=== PATIENT | female | born 1940 | race Caucasian/White ===

== ENCOUNTER → 2020-11-10 | Outpatient (CLI) | payer MEDICARE, OTHER ==
[~2020-11-10] MED LIST: ASCO500; ATOR20 PO; Acetaminophen325 M1; Bumetanide2 MG PO; COQ1050 MG PO; LOSA25 PO; METO25ER PO; MULVITA PO; POTA10T PO; VITAMIN D310 MC5; WARF5 PO; ZOLP5 PO
== END | disposition home or self-care (01) ==
LOC: LAB SHORT 12:56 → PLD 12:56
DX: D04.4 Carcinoma in situ of skin of scalp and neck (principal)
CPT/HCPCS: 88305

== ENCOUNTER 2021-04-20 17:43 | Emergency (ER) | payer MEDICARE, OTHER ==
[~2021-04-20] VITALS: Ht 154.9 cm; Wt 59.0 kg
[2021-04-20 18:37] LABS: BASOPHILS ABSOLUTE AUTO 0.02 K/mm3 (0.00-0.23); BASOPHILS PERCENT AUTO 0 % (0-2); EOSINOPHILS PERCENT AUTO 2 % (0-6); Hematocrit 37.8 % (33.0-51.0); Hemoglobin 11.9 g/dL (11.5-16.0); IMMATURE GRAN ABSOLUTE AUTO 0.02 K/mm3 (0.00-0.10); IMMATURE GRAN PERCENT AUTO 0 % (0-1); LYMPHOCYTES ABSOLUTE AUTO 0.64 K/mm3 (0.84-5.20); LYMPHOCYTES PERCENT AUTO 12 % (21-46); MONOCYTES ABSOLUTE AUTO 0.53 K/mm3 (0.16-1.47); MONOCYTES PERCENT AUTO 10 % (4-13); Mean Corpuscular HGB 31.2 pg (26.0-34.0); Mean Corpuscular HGB Conc 31.5 g/dL (31.5-36.5); Mean Corpuscular Volume 99 fL (80-100); Mean Platelet Volume 10.4 fL (9.1-12.4); NEUTROPHILS ABSOLUTE AUTO 3.96 K/mm3 (1.96-9.15); NEUTROPHILS PERCENT AUTO 75 % (41-73); Platelet Count 188 K/mm3 (150-400); RDW Coefficient Variation 16.1 % (11.7-14.2); RDW Standard Deviation 58.5 fL (35.1-46.3); Red Blood Cell Count 3.81 M/mm3 (3.80-5.20); White Blood Cell Count 5.27 K/mm3 (4.00-11.30)
[2021-04-20 19:00] LABS: Albumin, Blood 3.6 g/dL (3.4-5.0); Albumin/Globulin Ratio 0.8 (0.8-1.8); Bilirubin, Total 1.2 mg/dL (0.1-1.0); Bun/Creatinine Ratio 18.4 (12.0-20.0); Calcium, Blood 9.8 mg/dL (8.5-10.1); Creatinine, Blood 1.14 mg/dL (0.40-1.00); Globulin, Blood 4.4 g/dL (2.2-4.0); Potassium, Blood 4.1 mmol/L (3.5-5.5); Troponin I 0.038 ng/mL (0.000-0.040)
[2021-04-20] MEDS ORDERED: POTA10T PO (19:51)
[2021-04-20] MEDS ORDERED: ATOR20 PO (19:51)
[2021-04-20] MEDS ORDERED: WARF5 PO (19:52)
[2021-04-20] MEDS ORDERED: Bumetanide2 MG PO (19:53)
[2021-04-20] MEDS ORDERED: METO25ER PO (19:53)
[2021-04-20] MEDS ORDERED: LOSA25 PO (19:55)
[2021-04-20] MEDS ORDERED: ZOLP5 PO (19:55)
[2021-04-20] MEDS ORDERED: COQ1050 MG PO (19:56)
[2021-04-20] MEDS ORDERED: ASCO500 (19:56)
[2021-04-20] MEDS ORDERED: MULVITA PO (19:56)
[2021-04-20] MEDS ORDERED: Acetaminophen325 M1 (19:56)
[2021-04-20] MEDS ORDERED: VITAMIN D310 MC5 (19:57)
== END 2021-04-20 23:23 | disposition home or self-care (01) ==
LOC: ER 17:43
PROVIDERS: Physician Assistant
DX: I50.9 Heart failure, unspecified (principal); I48.91 Unspecified atrial fibrillation; Z88.8 Allergy status to other drugs, medicaments and biological substances; Z79.01 Long term (current) use of anticoagulants; Z79.899 Other long term (current) drug therapy; Z87.891 Personal history of nicotine dependence
CPT/HCPCS: 36415; 71046; 80053; 83880; 84484; 85025; 93005; 93010; 96374; 96376; 99285-25

== ENCOUNTER 2021-06-23 05:22 | Emergency (ER) | payer MEDICARE, OTHER ==
[~2021-06-23] VITALS: Ht 157.5 cm; Wt 58.5 kg
[2021-06-23] MEDS ORDERED: POTA10T PO (05:38)
[2021-06-23] MEDS ORDERED: ATOR10 PO (05:39)
[2021-06-23] MEDS ORDERED: LOSA25 PO (05:39)
[2021-06-23] MEDS ORDERED: WARF2.5 (05:39)
[2021-06-23] MEDS ORDERED: METO25ER PO (05:39)
[2021-06-23] MEDS ORDERED: ZOLP5 PO (05:40)
[2021-06-23] MEDS ORDERED: BUME2 PO (05:42)
[2021-06-23 06:13] LABS: BASOPHILS ABSOLUTE AUTO 0.02 K/mm3 (0.00-0.23); BASOPHILS PERCENT AUTO 1 % (0-2); EOSINOPHILS PERCENT AUTO 3 % (0-6); Hemoglobin 11.2 g/dL (11.5-16.0); IMMATURE GRAN ABSOLUTE AUTO 0.01 K/mm3 (0.00-0.10); IMMATURE GRAN PERCENT AUTO 0 % (0-1); LYMPHOCYTES ABSOLUTE AUTO 0.69 K/mm3 (0.84-5.20); LYMPHOCYTES PERCENT AUTO 19 % (21-46); MONOCYTES ABSOLUTE AUTO 0.44 K/mm3 (0.16-1.47); MONOCYTES PERCENT AUTO 12 % (4-13); Mean Corpuscular HGB 30.9 pg (26.0-34.0); Mean Corpuscular HGB Conc 31.1 g/dL (31.5-36.5); Mean Corpuscular Volume 99 fL (80-100); Mean Platelet Volume 10.3 fL (9.1-12.4); NEUTROPHILS ABSOLUTE AUTO 2.41 K/mm3 (1.96-9.15); NEUTROPHILS PERCENT AUTO 66 % (41-73); Platelet Count 143 K/mm3 (150-400); RDW Coefficient Variation 17.2 % (11.7-14.2); RDW Standard Deviation 63.7 fL (35.1-46.3); Red Blood Cell Count 3.62 M/mm3 (3.80-5.20); White Blood Cell Count 3.67 K/mm3 (4.00-11.30)
[2021-06-23 06:32] LABS: Albumin, Blood 3.3 g/dL (3.4-5.0); Albumin/Globulin Ratio 0.8 (0.8-1.8); Bilirubin, Total 1.1 mg/dL (0.1-1.0); Bun/Creatinine Ratio 17.5 (12.0-20.0); Calcium, Blood 9.3 mg/dL (8.5-10.1); Creatinine, Blood 1.26 mg/dL (0.40-1.00); Globulin, Blood 4.1 g/dL (2.2-4.0); Total Protein, Blood 7.4 g/dL (6.4-8.2); Troponin I 0.029 ng/mL (0.000-0.040)
[2021-06-23 07:00] LABS: International Normalized Ratio 2.39; Prothrombin Time Results 24.6 Sec (9.7-11.5)
== END 2021-06-23 11:31 | disposition home or self-care (01) ==
LOC: ER 05:22
PROVIDERS: Emergency Medicine
DX: I50.9 Heart failure, unspecified (principal); I48.91 Unspecified atrial fibrillation; Z88.8 Allergy status to other drugs, medicaments and biological substances; Z79.899 Other long term (current) drug therapy; Z79.01 Long term (current) use of anticoagulants; Z98.890 Other specified postprocedural states
CPT/HCPCS: 71045; 80053; 83880; 84484; 85025; 85610; 93005; 93010; 96374; 99285-25; J1940

== ENCOUNTER 2021-12-01 08:10 | Emergency (ER) | payer MEDICARE, OTHER ==
[~2021-12-01] VITALS: Ht 157.5 cm; Wt 59.0 kg
[~2021-12-01 08:10] MED LIST changes: +ATOR10 PO; +BUME2 PO; +WARF2.5
[2021-12-01] MEDS ORDERED: POTA10T (08:29)
[2021-12-01 09:29] LABS: BASOPHILS ABSOLUTE AUTO 0.02 K/mm3 (0.00-0.23); BASOPHILS PERCENT AUTO 1 % (0-2); EOSINOPHILS ABSOLUTE AUTO 0.07 K/mm3 (0.00-0.68); EOSINOPHILS PERCENT AUTO 2 % (0-6); Hematocrit 34.2 % (33.0-51.0); Hemoglobin 10.5 g/dL (11.5-16.0); IMMATURE GRAN ABSOLUTE AUTO 0.01 K/mm3 (0.00-0.10); IMMATURE GRAN PERCENT AUTO 0 % (0-1); LYMPHOCYTES ABSOLUTE AUTO 0.49 K/mm3 (0.84-5.20); LYMPHOCYTES PERCENT AUTO 11 % (21-46); MONOCYTES ABSOLUTE AUTO 0.46 K/mm3 (0.16-1.47); MONOCYTES PERCENT AUTO 11 % (4-13); Mean Corpuscular HGB 31.7 pg (26.0-34.0); Mean Corpuscular HGB Conc 30.7 g/dL (31.5-36.5); Mean Corpuscular Volume 103 fL (80-100); Mean Platelet Volume 10.6 fL (9.1-12.4); NEUTROPHILS ABSOLUTE AUTO 3.33 K/mm3 (1.96-9.15); NEUTROPHILS PERCENT AUTO 76 % (41-73); Platelet Count 156 K/mm3 (150-400); RDW Coefficient Variation 16.2 % (11.7-14.2); RDW Standard Deviation 62.4 fL (35.1-46.3); Red Blood Cell Count 3.31 M/mm3 (3.80-5.20); White Blood Cell Count 4.38 K/mm3 (4.00-11.30)
[2021-12-01 09:52] LABS: Albumin, Blood 3.4 g/dL (3.4-5.0); Albumin/Globulin Ratio 0.8 (0.8-1.8); Bilirubin, Direct 0.8 mg/dL (0.0-0.3); Bilirubin, Indirect 0.5 mg/dL (0.1-0.7); Bilirubin, Total 1.3 mg/dL (0.1-1.0); Bun/Creatinine Ratio 28.5 (12.0-20.0); Calcium, Blood 10.1 mg/dL (8.5-10.1); Creatinine, Blood 1.37 mg/dL (0.40-1.00); Globulin, Blood 4.5 g/dL (2.2-4.0); Potassium, Blood 3.9 mmol/L (3.5-5.5); Total Protein, Blood 7.9 g/dL (6.4-8.2)
[2021-12-01 10:44] LABS: Influenza A, PCR NEGATIVE (NEGATIVE); Influenza B, PCR NEGATIVE (NEGATIVE); Resp Syncytial Virus, PCR NEGATIVE (NEGATIVE); SARS-Cov-2 (COVID-19) PCR, MMC NEGATIVE (NEGATIVE)
[2021-12-01] MEDS ORDERED: Bumetanide2 MG PO (14:35)
== END 2021-12-01 15:45 | disposition home or self-care (01) ==
LOC: ER 08:10
PROVIDERS: Student in an Organized Health Care Education/Training Program
DX: J96.11 Chronic respiratory failure with hypoxia (principal); I50.9 Heart failure, unspecified; I48.91 Unspecified atrial fibrillation; N18.9 Chronic kidney disease, unspecified; Z20.822 Contact with and (suspected) exposure to COVID-19; Z88.8 Allergy status to other drugs, medicaments and biological substances; Z79.01 Long term (current) use of anticoagulants; Z79.899 Other long term (current) drug therapy
CPT/HCPCS: 0241U; 71045; 80048; 80076; 83735; 83880; 84484; 85025; 93005; 93010

== ENCOUNTER 2022-04-10 14:09 | Inpatient (IN) | payer MEDICARE, OTHER ==
[~2022-04-10] VITALS: Ht 154.9 cm; Wt 141.4 kg
[~2022-04-10 14:09] MED LIST changes: +POTA10T
[2022-04-10 14:33] LABS: BASOPHILS ABSOLUTE AUTO 0.02 K/mm3 (0.00-0.23); BASOPHILS PERCENT AUTO 0 % (0-2); EOSINOPHILS ABSOLUTE AUTO 0.08 K/mm3 (0.00-0.68); EOSINOPHILS PERCENT AUTO 1 % (0-6); Hematocrit 34.8 % (33.0-51.0); Hemoglobin 10.5 g/dL (11.5-16.0); IMMATURE GRAN ABSOLUTE AUTO 0.02 K/mm3 (0.00-0.10); IMMATURE GRAN PERCENT AUTO 0 % (0-1); LYMPHOCYTES ABSOLUTE AUTO 0.38 K/mm3 (0.84-5.20); LYMPHOCYTES PERCENT AUTO 6 % (21-46); MONOCYTES ABSOLUTE AUTO 0.66 K/mm3 (0.16-1.47); MONOCYTES PERCENT AUTO 11 % (4-13); Mean Corpuscular HGB 30.9 pg (26.0-34.0); Mean Corpuscular HGB Conc 30.2 g/dL (31.5-36.5); Mean Corpuscular Volume 102 fL (80-100); Mean Platelet Volume 10.4 fL (9.1-12.4); NEUTROPHILS ABSOLUTE AUTO 4.87 K/mm3 (1.96-9.15); NEUTROPHILS PERCENT AUTO 81 % (41-73); Platelet Count 252 K/mm3 (150-400); RDW Coefficient Variation 15.9 % (11.7-14.2); RDW Standard Deviation 60.7 fL (35.1-46.3); White Blood Cell Count 6.03 K/mm3 (4.00-11.30)
[2022-04-10 14:51] LABS: Albumin/Globulin Ratio 0.7 (0.8-1.8); Bilirubin, Total 1.9 mg/dL (0.1-1.0); Bun/Creatinine Ratio 40.5 (12.0-20.0); Calcium, Blood 9.7 mg/dL (8.5-10.1); Creatinine, Blood 2.15 mg/dL (0.40-1.00); Globulin, Blood 4.6 g/dL (2.2-4.0); Total Protein, Blood 7.6 g/dL (6.4-8.2)
[2022-04-10 15:30] LABS: Source, Urine Straight Cath
[2022-04-10 15:40] LABS: Appearance, Urine Clear (Clear); Bilirubin, Urine Neg (Neg); Blood, Urine Neg (Neg); Color, Urine Yellow (P-Yellow); Glucose Qualitative, Urine Neg (Neg); Ketones, Urine Neg (Neg); Leukocyte Esterase, Urine Neg (Neg); Nitrite, Urine Neg (Neg); Protein, Urine Neg (Neg); Specific Gravity, Urine 1.015 (1.003-1.022); Urobilinogen, Urine NORM (Normal)
[2022-04-10 20:24] LABS: Prothrombin Time Results 75.7 Sec (9.7-11.5)
[2022-04-10 20:26] LABS: International Normalized Ratio 8.28
--- NOTE | 2022-04-10 22:18 | NUR ---
PATIENT IS A NEW ADMIT FROM THE ED. ONE ASSIST TRANSFER FROM [facility] TO BED. ON 6L O2 NC AND SOB W/EXERTION. AXOX 3 WITH LOW VOICE, MUMBLES AT TIMES. DENIES CHEST PAIN AND N/V. IV BUMEX GIVEN IN ED. FOOD PROVIDED PER DIET ON ADMIT. PATIENT ORIENTED TO ROOM AND CALL LIGHT SYSTEM. REPORTS WANTS TO SLEEP AFTER ASSESSMENT. TELEMETRY PLACED AND TECH REPORTS PACED @ 60. CALL LIGHT IN REACH AND BED ALARM ACTIVATED.
--- NOTE | 2022-04-10 23:23 | NUR ---
PATIENT OOB W/O USING CALL LIGHT. ON BED ALARM. UP TO BSC WITH ONE ASSIST. PULLED TELEMETRY LEADS OFF. REDIRECTED BACK INTO BED AND LEADS REPLACED. CALL LIGHT IN REACH AND ALARM ACTIVATED.
[2022-04-11 01:19] LABS: Prothrombin Time Results 75.9 Sec (9.7-11.5)
[2022-04-11 01:21] LABS: International Normalized Ratio 8.3
[2022-04-11 01:21] LABS: Bun/Creatinine Ratio 41.1 (12.0-20.0); Calcium, Blood 9.3 mg/dL (8.5-10.1); Creatinine, Blood 2.19 mg/dL (0.40-1.00)
--- NOTE | 2022-04-11 02:40 | NUR ---
cH K+ 6.O AND cH INR 8.3, HOSPITALIST DR SLOAN ORDERED: INSULIN REGULAR 5 UNITS CALCIUM GLUCONATE IVPB DEXTROSE 5% 500 mL BAG. NO D50 AMPS AT THIS TIME
--- NOTE | 2022-04-11 04:47 | NUR ---
SHIFT SUMMARY PATIENT HAD cH: K+ 6.[address] SLOAN ORDERED IVPB CALICUM GLUCONATE, IV INSULIN REGULAR 5 UNITS AND DEXTROSE 5% 500 mL X ONE. LAB REDRAW IN MORNING. K+ WAS PREVIOUS 5.6 AND 6.0 ON ADMIT. cH INR 8.30. AXOX 3 AND ONE ASSIST TO BSC. ON 6L O2 NC BASELINE. VSS/AFEBRILE. TELEMETRY PACED 60'S. DENIES PAIN AND N/V. SOB WITH EXERTION. OOB X ONE WITH CONFUSION PULLING OFF TELEMETRY LEADS. REORIENTED BACK INTO BED. NO OTHER OOB EVENTS. CALL LIGHT IN REACH. BED IN LOWEST POSITION AND ALARM ACTIVATED. WILL CONTINUE TO MONITOR UNTIL DAY SHIFT NURSE ASSUMES CARE.
[2022-04-11 06:07] LABS: Albumin, Blood 2.8 g/dL (3.4-5.0); Albumin/Globulin Ratio 0.6 (0.8-1.8); Bilirubin, Total 1.8 mg/dL (0.1-1.0); Bun/Creatinine Ratio 43.7 (12.0-20.0); Calcium, Blood 9.8 mg/dL (8.5-10.1); Creatinine, Blood 2.06 mg/dL (0.40-1.00); Globulin, Blood 4.5 g/dL (2.2-4.0); Potassium, Blood 5.2 mmol/L (3.5-5.5); Total Protein, Blood 7.3 g/dL (6.4-8.2)
[2022-04-11 12:31] LABS: Hematocrit 34.7 % (33.0-51.0); Hemoglobin 10.3 g/dL (11.5-16.0)
[2022-04-11 13:26] LABS: Prothrombin Time Results 70.8 Sec (9.7-11.5)
[2022-04-11 13:28] LABS: International Normalized Ratio 7.71
--- NOTE | 2022-04-11 14:15 | NUR ---
SHIFT SUMMARY PT RESTING QUIETLY AWAKE AT START OF SHIFT. ADMITTED FOR MIRYAM, IN CONTACT ISO FOR R/O C-DIFF. MULTIPLE LIQUID BM'S TODAY, BUT ALWAYS CONTAMINATED. WEAK AND UNSTEADY, BUT ABLE TO GET UP TO CHAIR FOR MEALS AND BSC NEEDED. NO C/O PAIN. ON 4L O2 VIA N/C WITH BIOX AT 100%. WILL TITRATE DOWN ABLE. INR RECHK'D; NEW ORDERS PLACED AND GIVEN, SEE CHART. RESTING QUIETLY AT THIS TIME. DENIES FURTHER NEEDS. CALL LT IN REACH.
[2022-04-12 05:47] LABS: BASOPHILS ABSOLUTE AUTO 0.01 K/mm3 (0.00-0.23); BASOPHILS PERCENT AUTO 0 % (0-2); EOSINOPHILS ABSOLUTE AUTO 0.03 K/mm3 (0.00-0.68); EOSINOPHILS PERCENT AUTO 1 % (0-6); Hematocrit 32.5 % (33.0-51.0); Hemoglobin 9.8 g/dL (11.5-16.0); IMMATURE GRAN ABSOLUTE AUTO 0.02 K/mm3 (0.00-0.10); IMMATURE GRAN PERCENT AUTO 0 % (0-1); LYMPHOCYTES ABSOLUTE AUTO 0.36 K/mm3 (0.84-5.20); LYMPHOCYTES PERCENT AUTO 6 % (21-46); MONOCYTES PERCENT AUTO 12 % (4-13); Mean Corpuscular HGB 30.9 pg (26.0-34.0); Mean Corpuscular HGB Conc 30.2 g/dL (31.5-36.5); Mean Corpuscular Volume 103 fL (80-100); Mean Platelet Volume 10.6 fL (9.1-12.4); NEUTROPHILS PERCENT AUTO 81 % (41-73); Platelet Count 237 K/mm3 (150-400); RDW Coefficient Variation 15.9 % (11.7-14.2); Red Blood Cell Count 3.17 M/mm3 (3.80-5.20); White Blood Cell Count 5.82 K/mm3 (4.00-11.30)
[2022-04-12 06:08] LABS: Albumin, Blood 2.6 g/dL (3.4-5.0); Albumin/Globulin Ratio 0.6 (0.8-1.8); Bilirubin, Total 1.9 mg/dL (0.1-1.0); Bun/Creatinine Ratio 48.8 (12.0-20.0); Calcium, Blood 9.6 mg/dL (8.5-10.1); Creatinine, Blood 1.68 mg/dL (0.40-1.00); Globulin, Blood 4.2 g/dL (2.2-4.0); Potassium, Blood 5.1 mmol/L (3.5-5.5); Total Protein, Blood 6.8 g/dL (6.4-8.2)
[2022-04-12 06:16] LABS: International Normalized Ratio 2.35; Prothrombin Time Results 23.3 Sec (9.7-11.5)
--- NOTE | 2022-04-12 06:30 | NUR ---
SHIFT SUMMARY: NO SIGNIFICANT EVENTS ON NOC. REMAINS ON 1L O2 SAT > 94%. STOOL IS SOFT BUT FORMED. UNABLE TO SEND UA OR JULIA SAMPLE DUE TO PATIENT MIXING UA/STOOL WITH EACH OCCURANCE. TELE =PACED, MURMUR HEARD. BLE AND LUE EDEMA. PATIENT COMPLIANT WITH MEDICATIONS/PLAN OF CARE.
[2022-04-12 13:20] LABS: Bun/Creatinine Ratio 52.9 (12.0-20.0); Calcium, Blood 9.9 mg/dL (8.5-10.1); Creatinine, Blood 1.55 mg/dL (0.40-1.00); Potassium, Blood 5.1 mmol/L (3.5-5.5)
--- NOTE | 2022-04-12 16:32 | NUR ---
SHIFT SUMMARY PT AxOx4. PLEASANT AND COOPERATIVE WITH CARE. OCCASIONAL FORGETFULNESS. PT REPORTS FEELING GENERALLY UNWELL THIS SHIFT. PT IS SLEEPING A LOT T/O THE DAY. PT REPORTED HAVING AN UPSET STOMACH AFTER MORNING MEDS. PT STARTED ON IV FLUIDS. PT REPORTS LOW APPETITE, BUT GOOD FLUID INTAKE. SIGNIFICANT SWELLING IN LUE NOTED. PT STATES THE SWELLING IS "NORMAL FOR HER" POST L MASTECTOMY IN 2012. PT BREATHING WITHOUT DIFFICULTY ON 2L OF 02 AT THIS TIME. PER SUPERVISOR LITHARGE, TELE PACED AT 62. UNABLE TO COLLECT UA D/T CONTAMINATION. CONTACT PRECAUTIONS DC'D PER DR MUNROE PT'S STOOLS ARE NOW FORMED. PT CURRENTLY RESTING IN BED WITH CALL LIGHT IN REACH. VITALS REVIEWED. DENIES ANY NEEDS AT THIS TIME.
--- NOTE | 2022-04-13 05:23 | NUR ---
SHIFT SUMMARY: NO SIGNIFICANT EVENTS ON NOC. PATIENT SLEPT WELL THROUGH THE NIGHT. REAMINS ON 2.5L, CONTINOUS BIOX SHOWS SAT > 96%.
[2022-04-13 05:42] LABS: International Normalized Ratio 1.6; Prothrombin Time Results 16.3 Sec (9.7-11.5)
[2022-04-13 06:12] LABS: Bun/Creatinine Ratio 56.7 (12.0-20.0); Calcium, Blood 9.9 mg/dL (8.5-10.1); Creatinine, Blood 1.27 mg/dL (0.40-1.00); Potassium, Blood 4.8 mmol/L (3.5-5.5)
[2022-04-13 07:06] LABS: Hematocrit 32.4 % (33.0-51.0); Hemoglobin 9.8 g/dL (11.5-16.0)
--- NOTE | 2022-04-13 18:40 | NUR ---
SUMM- PT A/O X4, AMBULATES SBA GOOD STRENGTH, STEADY ON FEET. O2 @ 3L 94-96%, LUNGS DIM LOWER HALF. HEART WITH LOUD MURMUR. TELE PACED 60'S. LE EDEMA +2, LUE +3, STATES L MASECTOMY. DENIES DIZZINESS TODAY. TOLERATING FOOD AND FLUIDS. ORDER FOR LR @60 INFUSING X500ML. PLAN LIKELY DC TOMORROW BACK TO [facility]. WILL REPORT TO SUDHEER RN
[2022-04-14 04:42] LABS: Hematocrit 36.9 % (33.0-51.0); Hemoglobin 11.2 g/dL (11.5-16.0)
[2022-04-14 04:58] LABS: International Normalized Ratio 1.84; Prothrombin Time Results 18.6 Sec (9.7-11.5)
[2022-04-14 05:02] LABS: Bun/Creatinine Ratio 50.7 (12.0-20.0); Calcium, Blood 9.9 mg/dL (8.5-10.1); Creatinine, Blood 1.42 mg/dL (0.40-1.00); Potassium, Blood 5.4 mmol/L (3.5-5.5)
--- NOTE | 2022-04-14 05:31 | NUR ---
SHIFT SUMMARY: PATIENT APPEARS TO BE FULID OVERLOADED, WORK OF BREATHING INCREASED TACHYPNEA, 26, PURSED LIP BREATHING, AUDIABLE CRACKELS AND EXPRITORY WHEEZE HEARD FROM BEDSIDE. MD CONTACTED FLUIDS STOPPED, CXR FOR AM, MONITOR FOR NOW DUE TO KIDNEY FUNCTION. PATIENT WORK OF BREATHING OMPROVED SLOWLY THROUGH THE NIGHT, SAT REMAINED > 96% ON 4L. CRAKELS HEARD IN ALL LUNG COOPER. BLW AND LUE EDEMA INCREASED. ADENIKE HOSE APPLIED TO BLE. PATIENT USING BSC DUE TO DYSPNEA.
--- NOTE | 2022-04-14 17:50 | NUR ---
Good long therputic conversation with patient. She is well aware of her prognosis. She is distrught by her fatigue and failure to thrive. She has no appetitite and is struggling to walk. Pt reveiwed her stressors we did a aymptom review she states she sleeps well and has taken ambien for years. She has aches and pains but mostly air hunger. She has some quick bouts of nasuea. We discussed food strategies as she struggles to tolerate food. Her daughter is coming to help her find a place to live. She cant move by her daughter as she lives in [facility] [place].. He lives here they have not had a marriage for years they just never . She was supposed to see her pulmonolgist today. Will see if kale sewell can see her.We discussed home visits she has never had home health. She would be a canidate for the [facility] or [facility] disease managment programs. 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 Will follow up with care manger and pulmonolgy. coached her to monitor her symptoms and ask for medications she she does not loose more ground. Gave her reassurance of support as she just has her daghter for support. pt would benefit from hospice in near future. kps score is 40%
--- NOTE | 2022-04-14 17:52 | NUR ---
SHIFT SUMMARY PT HAD CONSULT WITH PALLIATIVE CARE TODAY. CONTINUOUS BIOX DC'D, OK PER DR. MUNROE. PT SHOWED A COUPLE EPISODES OF INCREASED WORK OF BREATHING, USING ACCESSORY MUSCLES, SPEAKING IN 2-3 WORD SENTENCES. SHE RESPONDED WELL TO NEBULIZER TREATMENTS. RECEIVED 1800 COUMADIN TODAY. EDEMA +2-3 TO MEDIAL LEFT AC, FOLLOWING A MASECTOMY OVER 10 YEARS AGO. PT STATES IT WAS PRESENT PRIOR TO ADMISSION. MAINTAINING SATS GREATER THAN 90%, ON 2LPM NASAL CANULA, ALTHOUGH SHE WAS INCREASED TO 5LPM BY RESP THERAPIST DURING EARLIER EPISODES OF DYSPNEA. PT STATES SHE IS OPEN TO SNF PLACEMENT AND OPEN TO PALLIATIVE CARE NURSE VISITS FROM HOME HEALTH AGENCY.
--- NOTE | 2022-04-14 19:04 | NUR ---
PHONE CALL PLACED TO YADIRA GARCIA TO DISCONTINUE CONTINOUS PULSE BIOX HAS PT HAS MAINTAINED O2 SATS GREATER THAN 90%.
--- NOTE | 2022-04-15 03:11 | NUR ---
ASSUMED CARE OF PT AT 1900. PT IS A&OX4, SBA TO BR W/ FWW, AND IS ABLE TO MAKE NEEDS KNOWN. NO ACUTE CHANGES THIS SHIFT. PT RESTS BETWEEN CARES, IS ABLE TO SLEEP 6+ HOURS. BECOMES SHORT OF BREATH DURING ANY ACTIVITY, IS CURRENTLY ON 4L NC AND IS >90%. IS ABLE TO TAKE MEDS WHOLE WITH THINS, TOLERTING DIET. PLAN TO D/C TO SNF. WILL CONTINUE TO MONITOR AND GIVE REPORT TO ONCOMING NURSE.
[2022-04-15 06:11] LABS: International Normalized Ratio 2.9; Prothrombin Time Results 28.4 Sec (9.7-11.5)
[2022-04-15 06:23] LABS: Bun/Creatinine Ratio 44.7 (12.0-20.0); Calcium, Blood 9.8 mg/dL (8.5-10.1); Creatinine, Blood 1.59 mg/dL (0.40-1.00); Potassium, Blood 5.3 mmol/L (3.5-5.5)
--- NOTE | 2022-04-15 17:05 | NUR ---
DAYSHIFT SUMMARY Pt worked with therapy today, SOB with activity, tachypnea at rest. Frequent nonproductive cough. Started Bumex PO today, will continue daily standing wts to monitor fluid. MD waiting for ECHO to be done.. Case management following, patient expected to [facility], when medically stable. 2.5 lpm O2 to maintain sats, Vitals stable. Bilateral LE, +3 pitting edema. Lungs fine crackles/diminished.
--- NOTE | 2022-04-16 04:41 | NUR ---
SHIFT SUMMARY 89 YR F ADMITTED ON 04/12/22. DNR. NO ACUTE CHANGES THIS SHIFT. PT C/O WEAKNESS AND SOB WITH EXERTION WHICH WAS BASICALLY JUST GOING TO THE BATHROOM. BLE 3+ PITTING EDEMA AND WEEPING ENOUGH TO WET THE BED SHEETS. BEDDING WAS CHANGED AND ABSORBANT PADS PUT DOWN BUT THERE APPEARED TO BE NO MORE MOISTURE AFTER THAT. SHE ALSO C/O PAIN IN HER RIGHT ARM AND A HEATING PAD WAS PROVIDED. PT STATED THAT IT HELPED W/ THE PAIN. [facility].
[2022-04-16 05:57] LABS: Hematocrit 33.9 % (33.0-51.0); Hemoglobin 10.4 g/dL (11.5-16.0)
[2022-04-16 06:26] LABS: Prothrombin Time Results 41.7 Sec (9.7-11.5)
[2022-04-16 06:35] LABS: Calcium, Blood 9.7 mg/dL (8.5-10.1); Creatinine, Blood 1.55 mg/dL (0.40-1.00); Potassium, Blood 5.3 mmol/L (3.5-5.5)
[2022-04-16 06:36] LABS: International Normalized Ratio 4.37
[2022-04-16 15:58] LABS: Bun/Creatinine Ratio 53.2 (12.0-20.0); Calcium, Blood 9.7 mg/dL (8.5-10.1); Creatinine, Blood 1.41 mg/dL (0.40-1.00); Potassium, Blood 5.4 mmol/L (3.5-5.5)
--- NOTE | 2022-04-16 17:24 | NUR ---
DAYSHIFT SUMMARY No changes in plan of care, continuing to administer Bumex. Patient worked with therapy today, walked hallway. Patient tachypnea at rest, SOB with activity. Fine crackles, diminished at bases, infrequent nonproductive cough. Saturations stable on 2.5 lpm. Vitals stable WNL.
--- NOTE | 2022-04-17 05:26 | NUR ---
SHIFT SUMMARY 82 YR F ADMITTED ON 04/12/22. DNR. NO ACUTE CHANGES THIS SHIFT. PT IS ABLE TO AMBULATE TO BATHROOM AND LIKES TO GET UP AND WALK AROUND THE ROOM FROM TIME TO TIME. SHE C/O PAIN IN HER RIGHT ARM AND WAS MEDICATED PER EMAR. NO C/O OF SOB THIS SHIFT. PT IS A PLEASANT AND SOFT SPOKEN WOMAN. SHE IS COOPERATIVE WITH HER CARE AND CALLS APPROPRIATELY FOR HER NEEDS.
[2022-04-17 05:48] LABS: International Normalized Ratio 3.35; Prothrombin Time Results 32.5 Sec (9.7-11.5)
--- NOTE | 2022-04-17 09:00 | NUR ---
PT PLEASANT COOP A/O X3. 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 DENIES PAINAT THIS TIEM. H/R IRREGULAR. MURMER NOTED. PER TELE STRIP BIVENTRICULAR PACED AT 60 BBB. LUNGS CLEAR UPPER CRACKLES IN BILAT BASES. ON 3L O2 PRESENTLY. REWP EASY,UNLABORED AT REST. SOB WITH EXERTION. BT X4 LAST BM YEST PER PT. VOIDS BATHROOM. INDEPENDANT IN ROOM. EDEMA +3 BLE AND +2 HUNG. MASTECTOMY ON LEFT. BED IN LOW POSITION, CALL LITE IN REACH, CALLS APPROP
--- NOTE | 2022-04-17 11:01 | NUR ---
HOSE PLACED PER DR BRIGHT
--- NOTE | 2022-04-17 17:45 | NUR ---
ESPINOZA HAS BEEN QUITE PLEASANT TODAY. WE GOT NEW HOSE PUT ON HER LEGS THIS AM. STILL DRAINING FLUID. HER LEGS ARE ON PILLOWS AND ALONSO PADS TO KEEP DRY. PT PREFERS TO SLEEP OR SIT IN BED AT ABOUT 30' ANGLE. NO NEW CONCERNS NOTED TODAY. CONTINUES TO BE INDEPENDANT IN ROOM. BED IN LOW POSITION, CALL LITE IN REACH, CALLS APPROP
[2022-04-18 05:33] LABS: International Normalized Ratio 2.51; Prothrombin Time Results 24.8 Sec (9.7-11.5)
--- NOTE | 2022-04-18 06:48 | NUR ---
A &OX4. V/S WNL. O2 @ 3LPM VIA NC. SUPERVISION ON AMBULATION WITH FWW. IV TO L) AC. 2-GRAM NA DIET. FORGETFUL AT TIMES. LEGS ELEVATED AND STOCKINGS CHANGED THIS AM. LEGS STILL WEEPING. PRN TYLENOL GIVEN FOR LEG PAIN PER EMAR. WILL CONTINUE TO MONITOR.
[2022-04-18 07:50] LABS: Bun/Creatinine Ratio 56.8 (12.0-20.0); Calcium, Blood 9.8 mg/dL (8.5-10.1); Creatinine, Blood 1.39 mg/dL (0.40-1.00); Potassium, Blood 5.4 mmol/L (3.5-5.5)
--- NOTE | 2022-04-18 12:00 | NUR ---
DR WANTS TO KEEP CLOSE ON I/O FLUIDS. PLACED HAT IN TOILET TO CATCH. PT A/O AND ASKED TO CALL WITH EACH VOID AND WE WILL MEASURE.
--- NOTE | 2022-04-18 18:17 | NUR ---
PT HAS BEEN PLEASANT TODAY. MED FOR PAIN ONCE TODAY. HAS CONTINUED TO AMBULATE IN ROOM WITH FWW. DID HAVE EX AND DAUGHETER IN TO VISIT TODAY. PLEASANT VISIT. CONTINUE TO KEEP LEGS ELEVATED WHEN CAN AND WALK WHEN NEED. SIT SOME IN CHAIR. THEN BACK TO BED WITH FEET ELEVATED. CHANGING HOSE PER SHIFT. NO REAL CHANGES NOTED TODAY. BED INLOW POSITION, CALL LITE IN REACH, CALLS APPROP
--- NOTE | 2022-04-19 05:10 | NUR ---
A&OX4. FORGETFUL AT TIMES. V/S WNL. UP TO BATHROOM WITH FWW, SUPERVISION/1-ASSIST. LOWER EXTREMITIES EDEMA: ELEVATED AND STOCKINGS IN PLACE. CONTINENT OF URINE/BOWEL. LEGS SEEPING DECREASING. EDEMA TO L) UPPER EXTREMITY:ELEVATED. 2-GRAM NA DIET. TELE: BIVENTRICULAR PACED @ HR OF 61. IV TO L) AC. O2 @2LPM VIA NC. NO PAIN REPORTED THIS SHIFT. WILL CONTINUE TO MONITOR.
[2022-04-19 05:26] LABS: Bun/Creatinine Ratio 60.4 (12.0-20.0); Creatinine, Blood 1.34 mg/dL (0.40-1.00); Potassium, Blood 4.8 mmol/L (3.5-5.5)
[2022-04-19 05:27] LABS: International Normalized Ratio 2.39; Prothrombin Time Results 23.7 Sec (9.7-11.5)
--- NOTE | 2022-04-19 18:16 | NUR ---
SHIFT SUMMARY PT A&O X4 AND IN PLEASENT MOOD T/O SHIFT. FAMILY/PAL CARE IN TO SEE PT DURING THIS SHIFT. PT ENJOYED WATCHING TV T/O SHIFT. NO C/O PAIN. CALL LIGHT W/IN REACH. VSS. TELE IN PLACE, PACED @ 61.
--- NOTE | 2022-04-20 05:51 | NUR ---
A&OX4.V/S WNL. O2 @2LPM VIA NC. 1SBA WITH FWW. COMPRESSED STOCKINGS CHANGED AND LEGS ELEVATED ON 2 PILLOWS. SEEPING FROM LEGS IS SMALL. L) UPPER EXTREMITY ELEVATED. VOIDS W/O DIFFICULTY. BM PREVIOUS SHIFT. TYLENOL GIVEN PRIOR TO STOCKINGS CHANGE. PLEASANT & COOPERATIVE. IV TO L) AC. WILL CONTINUE TO MONITOR.
[2022-04-20 06:44] LABS: Bun/Creatinine Ratio 63.7 (12.0-20.0); Calcium, Blood 9.9 mg/dL (8.5-10.1); Creatinine, Blood 1.35 mg/dL (0.40-1.00); International Normalized Ratio 2.68; Potassium, Blood 4.9 mmol/L (3.5-5.5); Prothrombin Time Results 26.4 Sec (9.7-11.5)
[2022-04-20 12:15] LABS: Influenza A, PCR NEGATIVE (NEGATIVE); Influenza B, PCR NEGATIVE (NEGATIVE); Resp Syncytial Virus, PCR NEGATIVE (NEGATIVE); SARS-Cov-2 (COVID-19) PCR, MMC NEGATIVE (NEGATIVE)
--- NOTE | 2022-04-20 19:38 | NUR ---
SHIFT SUMMARY PT A&OX4 AND IN PLEASENT MOOD T/O SHIFT. FAMILY @ BEDSIDE T/O SHIFT. PLAN TO D/C THIS SHIFT. TRANSPORT SCHEDULED TO GO TO [facility] @ 1715, OCCUPATION THERAPY ASSISTED PT TO GET DRESSED, WHILE APPLYING ADENIKE HOSE BLOOD BLISTER POPPED. PT FAMILY VOICED CONCERNS OF WEEPING/BLEEDING- NOTIFIED AND D/C POST-PONED. REPORTED THAT THE PT WOULD BE CONSULTED BY A WOUND NURSE, WOUND NURSE OUT UNTIL MON. PLAN TO REDRESS PT LEGS UTILIZING ABSORB PADS AND ROXANNE FOR CONT. WEEPING. BED IN BED FEET ELEVATED ON PILLOWS ABOVE HEART LEVEL. VSS. CALL LIGHT W/IN REACH. TELE IN PLACE PACED @ 60
--- NOTE | 2022-04-21 06:15 | NUR ---
SHIFT SUMMARY NOC: PT HAS 3+ EDEMA TO BILATERAL LEGS. LEGS WEEPING. BOTH LEGS ABD PADS APPLIED, LEGS WRAPPED IN KERLIX. PT SBA WITH FWW TO BATHROOM. PT SLEPT MOST OF NIGHT. NO ACUTE EVENTS.
[2022-04-21 06:43] LABS: International Normalized Ratio 2.71; Prothrombin Time Results 26.7 Sec (9.7-11.5)
[2022-04-21 12:29] LABS: Influenza A, PCR NEGATIVE (NEGATIVE); Influenza B, PCR NEGATIVE (NEGATIVE); Resp Syncytial Virus, PCR NEGATIVE (NEGATIVE); SARS-Cov-2 (COVID-19) PCR, MMC NEGATIVE (NEGATIVE)
--- NOTE | 2022-04-21 13:22 | NUR ---
Called pt's daughter Geraldine this morning to provide reassurance that pt's lower extremity edema does occassionallly leak, and there is currently no s/s of infection or other issue that would need to be addressed specifically by a project specialist. Also informed her that [facility] has [facility] and they are equipped to deal with edema, both weeping and non-weeping. Pt's daughter is in agreement, and also adamant that pt not lose the skilled bed by unecessarily keeping her in the hospital for edema.
--- NOTE | 2022-04-21 14:43 | NUR ---
DISCHARGE PT A&O X4 @ TIME OF D/C. DAUGHTER AND EX @ BEDSIDE DURING D/C. [facility] TO PROVIDE TRANSPORT. VSS. IV DC'ED. 3L NC. REPORT CALLED INTO [facility]. BLE WRAPPED W/ ABD, KERLEX, AND ROXANNE FOR WEEPING/EDEMA-PIC IN CHART.
== END 2022-04-21 14:40 | DRG 682 ==
LOC: ER 14:09 → MEDS 14:10 → ENPENDDIS 04-20 16:43 → MEDS 04-21 14:40
PROVIDERS: Family Medicine; Hospitalist; Nurse Practitioner Acute Care; Student in an Organized Health Care Education/Training Program; ADMIT Internal Medicine
DX: N17.9 Acute kidney failure, unspecified (principal); I50.33 Acute on chronic diastolic (congestive) heart failure; J91.8 Pleural effusion in other conditions classified elsewhere; I13.0 Hypertensive heart and chronic kidney disease with heart failure and stage 1 through stage 4 chronic kidney disease, or unspecified chronic kidney disease; I48.20 Chronic atrial fibrillation, unspecified; E87.1 Hypo-osmolality and hyponatremia; I31.3 Pericardial effusion (noninflammatory); Z66 Do not resuscitate; Z20.822 Contact with and (suspected) exposure to COVID-19; E86.0 Dehydration; E78.5 Hyperlipidemia, unspecified; R79.1 Abnormal coagulation profile; I27.20 Pulmonary hypertension, unspecified; F32.A Depression, unspecified; E87.5 Hyperkalemia; J84.10 Pulmonary fibrosis, unspecified; G47.00 Insomnia, unspecified; R19.7 Diarrhea, unspecified; M35.00 Sjogren syndrome, unspecified; N18.9 Chronic kidney disease, unspecified; I07.1 Rheumatic tricuspid insufficiency; Z95.0 Presence of cardiac pacemaker; Z99.81 Dependence on supplemental oxygen; Z88.8 Allergy status to other drugs, medicaments and biological substances; Z87.891 Personal history of nicotine dependence; Z98.890 Other specified postprocedural states; Z79.899 Other long term (current) drug therapy
CPT/HCPCS: 0241U; 36415; 71045; 80048; 80053; 81003; 82570; 83880; 84132; 84484; 84540; 85014; 85018; 85025; 85610; 93005; 93010; 93306; 93308; 93321; 94640; 94664; 94760; 94761; 94762; 96361; 96374; 97110; 97116; 97162; 97166; 97530; 97535; 99285-25; A9270; G0378; J0610; J1815; J7030; J7060; J7120; P9612